=== PATIENT | female | born 1970 | race Caucasian/White ===

== ENCOUNTER 2021-10-10 16:04 | Observation (INO) | payer SELFPAY ==
[2021-10-10] MEDS ORDERED: Metoprolol Tartrate 5 MG/5 ML VIAL ONE (17:34)
[2021-10-10 17:40] LABS: PTT 26.9 sec (22.0-33.0); Prothrombin Time 10.9 sec (9.5-12.1)
[2021-10-10 17:42] LABS: ALT (SGPT) 20 U/L (8-55); AST (SGOT) 14 U/L (5-34); Albumin 4.7 g/dL (3.5-5.0); Alkaline Phosphatase 114 U/L (40-110); Anion Gap 18 mmol/L (10-20); BUN (Urea Nitrogen) 11 mg/dL (9.8-20.1); Bilirubin, Total 0.3 mg/dL (0.2-1.2); Calc. Creatinine Clearance 0 mL/min (70-130); Calcium 9.7 mg/dL (7.8-10.44); Carbon Dioxide 27 mmol/L (22-29); Chloride 97 mmol/L (98-107); Globulin 3.4 g/dL (2.4-3.5); Glucose 197 mg/dL (70-105); Potassium 3.5 mmol/L (3.5-5.1); Protein, Total 8.1 g/dL (6.0-8.3); Sodium 138 mmol/L (136-145)
[2021-10-10 17:45] LABS: #Eosinphils 0.3 10x3/uL (0.0-0.5); #Monocytes 0.7 10x3/uL (0.0-1.1); #Neutrophils 6.2 10x3/uL (1.5-8.4); %Basophils 0.3 % (0.0-2.0); %Eosinophils 3.1 % (0.0-6.0); %Lymphocytes 20.3 % (18.0-47.0); %Monocytes 7.7 % (0.0-10.0); %Neutrophils 68.2 % (40.0-75.0); Hemoglobin 11.7 g/dL (12.0-15.5); Mean Corpuscular HGB CONC 32.7 g/dL (32.0-36.0); Mean Corpuscular Volume 88.6 fl (81.6-98.3); Mean Platelet Volume 10.7 fl (7.4-10.4); Platelet Count 273 10x3/uL (150-450); RBC Distribution Width 12.7 % (11.5-14.5); Red Blood Cell (RBC) Count 4.04 10x6/uL (3.90-5.03); White Blood Cell (WBC) Count 9.2 10x3/uL (3.5-10.5)
[2021-10-10] MEDS ORDERED: Calcium Carbonate 500 MG ChewTAB PO PRN (19:18)
[2021-10-10] MEDS ORDERED: Senokot S 8.6-50 MG TAB PO PRN (19:18)
[2021-10-10] MEDS ORDERED: Zolpidem Tartrate 5 MG TAB PO PRN (19:18)
[2021-10-10] MEDS ORDERED: Acetaminophen 325 MG TAB PO PRN (19:18)
[2021-10-10] MEDS ORDERED: Nitroglycerin 0.4 MG TAB (25 Tab Bottle) SL PRN (19:18)
[2021-10-10] MEDS ORDERED: Guaifenesin DM 100-10/5 ML UDCUP PO PRN (19:18)
[2021-10-10] MEDS ORDERED: HYDROcodone/Acetaminophen 5/325 mg Tablet PO PRN (19:18)
[2021-10-10] MEDS ORDERED: Ondansetron PF 4 MG/2 ML Vial IVP PRN (19:18)
[2021-10-10] MEDS ORDERED: Labetalol HCl 100 MG/20 ML VIAL SLOW IVP PRN (19:22)
[2021-10-10] MEDS ORDERED: HumaLOG 300 UNITS/3 ML VIAL SC PRN (19:23)
[2021-10-10] MEDS ORDERED: Dextrose 5% in Water 1,000 ML IV PRN (19:23)
[2021-10-10] MEDS ORDERED: Dextrose 50% Abboject 50 ML SYRINGE SLOW IVP PRN (19:23)
[2021-10-10] MEDS ORDERED: Aspirin Chewable 81 MG TAB ONE (21:42)
[2021-10-10] MEDS ORDERED: Nitroglycerin 2% Ointment 1 INCH/1 GM Packet ONE (21:42)
[2021-10-10] MEDS ORDERED: Cyclobenzaprine 10 MG TAB ONE (21:42)
[2021-10-10] MEDS ORDERED: HYDROcodone/Acetaminophen 5/325 mg Tablet ONE (21:43)
[2021-10-10] MEDS ORDERED: Carvedilol 3.125 MG TAB PO SCH (22:45)
[2021-10-10] MEDS ORDERED: Lisinopril 10 MG TAB PO SCH (22:45)
[2021-10-10] MEDS ORDERED: Gabapentin 300 MG CAP PO SCH (23:00)
[2021-10-11] MEDS ORDERED: HYDROcodone/Acetaminophen 5/325 mg Tablet ONE (02:30)
[2021-10-11 05:22] LABS: Anion Gap 14 mmol/L (10-20); BUN (Urea Nitrogen) 10 mg/dL (9.8-20.1); Calc. Creatinine Clearance 0 mL/min (70-130); Calcium 9.2 mg/dL (7.8-10.44); Carbon Dioxide 28 mmol/L (22-29); Cardiac Risk 5.7 (Less than 4.5); Chloride 100 mmol/L (98-107); Cholesterol 187 mg/dl (< 200 Desired); Glucose 132 mg/dL (70-105); HDL Cholesterol 33 mg/dL (>60 Neg Risk); LDL Cholesterol, Calculated 128 mg/dL; Potassium 3.5 mmol/L (3.5-5.1); Sodium 138 mmol/L (136-145); Triglycerides 132 mg/dL (Less than 150)
[2021-10-11] MEDS ORDERED: Budesonide 0.5 MG/2 ML NEB NEB SCH (06:30)
[2021-10-11] MEDS: Cyclobenzaprine 10 MG TAB PO SCH ×2 (07:34→12:59)
[2021-10-11] MEDS ORDERED: Nicotine 21 MG PATCH ONE (07:44)
[2021-10-11] MEDS ORDERED: Gabapentin 300 MG CAP ONE ×2 (07:44)
[2021-10-11] MEDS ORDERED: Budesonide 0.5 MG/2 ML NEB ONE (07:49)
[2021-10-11] MEDS ORDERED: Aspirin Chewable 81 MG TAB ONE (07:49)
[2021-10-11] MEDS ORDERED: Enoxaparin Sodium 40 MG/0.4 ML SYRINGE ONE (07:49)
[2021-10-11] MEDS ORDERED: glyBURIDE 5 MG TAB PO SCH (08:00)
[2021-10-11] MEDS: Carvedilol 6.25 MG TAB PO SCH ×2 (08:25→17:23)
[2021-10-11] MEDS: Gabapentin 300 MG CAP PO SCH ×2 (08:26→14:00)
[2021-10-11] MEDS ORDERED: Aspirin Chewable 81 MG TAB PO SCH (09:00)
[2021-10-11] MEDS ORDERED: Enoxaparin Sodium 40 MG/0.4 ML SYRINGE SC SCH (09:00)
[2021-10-11] MEDS ORDERED: Nicotine 21 MG PATCH TD SCH (09:00)
[2021-10-11] MEDS ORDERED: Lisinopril 20 MG TAB PO SCH (09:00)
[2021-10-11] MEDS ORDERED: Pioglitazone HCl 15 MG TAB PO SCH (09:00)
[2021-10-11 09:46] LABS: Bilirubin Neg (Negative); Blood, Urine Negative (Negative); Clarity Slightly Cloudy (Clear); Glucose, Urine (Dipstick) Normal (Negative); Ketone, Urine Negative (Negative); Leukocyte Negative (Negative); Nitrite Negative (Negative); Protein, Urine (Dipstick) Negative (Neg-Trace); Specific Gravity, Urine 1.015 (1.002-1.036); Urobilinogen Normal mg/dL (Less than 2)
[2021-10-11 10:04] LABS: Bacteria/HPF None Seen HPF (None Seen); RBC/HPF 0-3 HPF (0-3); WBC/HPF 0-3 HPF (0-3)
[2021-10-11 10:06] LABS: SARS-CoV-2 NAA Rapid Test Not Detected (NotDetected)
[2021-10-11 11:15] LABS: Hemoglobin A1c 8.4 % (4.0-6.0)
[2021-10-11] MEDS ORDERED: Lidocaine 5% Patch TD SCH (14:00)
[2021-10-11 14:17] VITALS: BMI 36.3
[2021-10-11] MEDS ORDERED: FLU VACC QS2021-22(6MOS UP)/PF 60 MCG/0.5 ML SYRINGE IM ONE (14:30)
[2021-10-11 16:37] VITALS: TEMP 97.7
[2021-10-11 17:24] VITALS: BP 107/74
[2021-10-11] MEDS ORDERED: Atorvastatin Calcium 10 MG TAB PO SCH (21:00)
[2021-10-12] MEDS ORDERED: Transdermal Patch Removal TOP SCH (02:00)
== END 2021-10-11 18:10 | disposition home or self-care (01) ==
LOC: CSHERS 16:04 → CSHERHOLD 22:41 → INTOOBSV 22:41 → CSHTELE 10-11 12:30
PROVIDERS: ADMIT Emergency Medicine; ATTEND Internal Medicine
DX: R07.89 Other chest pain (principal); E11.22 Type 2 diabetes mellitus with diabetic chronic kidney disease; I12.9 Hypertensive chronic kidney disease with stage 1 through stage 4 chronic kidney disease, or unspecified chronic kidney disease; N18.2 Chronic kidney disease, stage 2 (mild); E78.5 Hyperlipidemia, unspecified; M54.9 Dorsalgia, unspecified; F12.10 Cannabis abuse, uncomplicated; M48.02 Spinal stenosis, cervical region; Z79.899 Other long term (current) drug therapy; Z87.891 Personal history of nicotine dependence; J44.9 Chronic obstructive pulmonary disease, unspecified; Z90.49 Acquired absence of other specified parts of digestive tract; Z79.82 Long term (current) use of aspirin; Z79.4 Long term (current) use of insulin; Z20.822 Contact with and (suspected) exposure to COVID-19
CPT/HCPCS: 36415; 36416; 71045; 71275; 74174; 80048; 80053; 80061; 81001; 83036; 83690; 83880; 84443; 84484; 85025; 85610; 85730; 93005; 93306; 94640; 96372; 96374; G0378; J1650; J7626; U0002